=== PATIENT | female | born 1975 ===

== ENCOUNTER 2023-08-07 20:31 | Emergency (ER) | payer OTHER, BC, MEDICAID ==
[2023-08-07] MEDS ORDERED: Baclofen 10 MG Tab ONE (21:55)
== END 2023-08-07 21:59 | disposition home or self-care (01) ==
LOC: DL.ED 20:31
DX: S23.41XA Sprain of ribs, initial encounter (principal); W01.0XXA Fall on same level from slipping, tripping and stumbling without subsequent striking against object, initial encounter; Z90.49 Acquired absence of other specified parts of digestive tract; Z90.710 Acquired absence of both cervix and uterus; Z88.2 Allergy status to sulfonamides
CPT/HCPCS: 71101-LT; 99282; 99283